=== PATIENT | female | born 1980 | race Caucasian/White ===

== ENCOUNTER → 2018-03-04 | Day surgery (SDC) | payer BC, OTHER ==
[~2018-03-04] MED LIST: Lactated Ringers 1,000 ML IV SCH; Lidocaine 1% 6 ML ONE; Lidocaine 1%/Sod Bicarbonate in NS 8.4% 1 ML Syringe IDERM PRN; Propofol 200 MG/20 ML SDV ONE; Sodium Chloride 0.9% 10 ML Syringe FLUSH PRN; fentaNYL 100 MCG/2 ML SDV ONE
--- NOTE | 2018-03-04 09:46 | PCM.PREANE ---
Preanesthetic Assessment - Anesthesia/Transfusion/Family Hx Anesthesia History: Prior Anesthesia Without Reaction Family History of Anesthesia Reaction: No Transfusion History: No Prior Transfusion(s) Intubation History: Unknown - Review of Systems General: Fatigue, Malaise Pulmonary: No Symptoms (smoker: 0.5 ppd/times 20 years.) Cardiovascular: No Symptoms (History of heart murmur-unable to auscultate at this time.(Patient states doctors do not worry about it.)), Lightheadedness ( with anemia(with postural changes)) Gastrointestinal: Abdominal Pain, Nausea Neurological: No Symptoms, Headache (History of migraines) Other: Reports: None (Iron deficiency), Easy Bruising - Physical Assessment NPO Status Date: 03/03/18 NPO Status Time: 21:30 Pulse: 85 O2 Sat by Pulse Oximetry: 97 Respiratory Rate: 16 Blood Pressure: 101/65 Temperature: 36.8 C Vital Signs: Last Vital Signs Temp 36.8 C 03/04/18 08:50 Pulse 85 03/04/18 08:50 Resp 16 03/04/18 08:50 BP 101/65 03/04/18 08:50 Pulse Ox 97 03/04/18 08:50 Height: 1.55 m Weight: 66.3 kg ASA Class: 2 Mental Status: Alert & Oriented x3 Airway Class: Mallampati = 2 Dentition: Reports: Dentures (upper) Thyro-Mental Finger Breadths: 3 Mouth Opening Finger Breadths: 3 ROM/Head Extension: Full Lungs: Clear to Auscultation, Normal Respiratory Effort Cardiovascular: Regular Rate, Regular Rhythm, No Murmurs - Lab Values: Laboratory Last Values Urine HCG, Qual Negative (NEGATIVE) 03/04/18 08:50 - Allergies Allergies/Adverse Reactions: Allergies Allergy/AdvReac Type Severity Reaction Status Date / Time ibuprofen [From Advil] Allergy Intermediate Edema Verified 03/04/18 09:32 naproxen sodium [From Aleve] Allergy Edema Verified 03/04/18 09:32 tramadol Allergy Stomach Verified 03/04/18 09:32 Ache - Anesthesia Plan Pre-Op Medication Ordered: None - Acknowledgements Anesthesia Type Planned: MAC Pt an Appropriate Candidate for the Planned Anesthesia: Yes Alternatives and Risks of Anesthesia Discussed w Pt/Guardian: Yes Pt/Guardian Understands and Agrees with Anesthesia Plan: Yes PreAnesthesia Questionnaire HEENT History: Reports: Impaired Vision Cardiovascular History: Reports: Heart Murmur Respiratory History: Reports: None Gastrointestinal History: Reports: Other (See Below) Other Gastrointestinal History: abdominal pain Genitourinary History: Reports: None Musculoskeletal History: Reports: Other (See Below) Other Musculoskeletal History: lateral epicondylitis to right elbow, osteochondritis, right knee arthroscopy Neurological History: Reports: Migraines Psychiatric History: Reports: None Endocrine/Metabolic History: Reports: None Hematologic History: Reports: Anemia, Iron Deficiency Immunologic History: Reports: None Oncologic (Cancer) History: Reports: None Dermatologic History: Reports: None - Past Surgical History Head Surgeries/Procedures: Reports: None HEENT Surgical History: Reports: Oral Surgery Cardiovascular Surgical History: Reports: None Respiratory Surgical History: Reports: None GI Surgical History: Reports: None Female Surgical History: Reports: Section Male Surgical History: Reports: None Endocrine Surgical History: Reports: None Neurological Surgical History: Reports: None Musculoskeletal Surgical History: Reports: None Oncologic Surgical History: Reports: None Dermatological Surgical History: Reports: None - SUBSTANCE USE Smoking Status *Q: Current Every Day Smoker Recreational Drug Use History: No - HOME MEDS Home Medications: Home Meds Acetaminophen [Tylenol Extra Strength] 1,000 mg PO Q6H PRN 03/03/18 [History] Ferrous Sulfate [Iron] 325 mg PO BID 03/03/18 [History] Hydrocodone/Acetaminophen [Hydrocodon-Acetaminophen 5-325] 1 tab PO Q6H PRN [History] Ondansetron HCl [Ondansetron] 4 mg PO Q6H PRN 03/03/18 [History] - CURRENT (IN HOUSE) MEDS Current Meds: Current Medications Lactated Ringer's (Ringers, Lactated) 1,000 mls @ 125 mls/hr IV ASDIRECTED TU Stop: 03/04/18 23:00 Lidocaine/Sodium Bicarbonate (Buffered Lidocaine 1% In Ns 8.4%) 0.25 ml IDERM ONETIME PRN PRN Reason: Prior to IV Start Stop: 03/04/18 18:00 Sodium Chloride (Saline Flush) 10 ml FLUSH ASDIRECTED PRN PRN Reason: Keep Vein Open Stop: 03/04/18 18:00 Discontinued Medications Fentanyl (Sublimaze) Confirm Administered Dose 100 mcg .ROUTE .STK-MED ONE Stop: 03/04/18 09:21
--- NOTE | 2018-03-04 10:57 | PCM.OPNOTE ---
- General Post-Op/Procedure Note Date of Surgery/Procedure: 03/04/18 Operative Procedure(s): EGD with biopsy; colonoscopy to cecum with biopsy Findings: sigmoid polyps Pre Op Diagnosis: anemia Post-Op Diagnosis: anemia Anesthesia Technique: MAC Primary Surgeon: Pati Stein Secondary Surgeon: Keith Das Pathology: 1. Gastric antrum mucosa for H. pylori 2. Sigmoid polyps x2 Fluid Replacement, Intraop: 1,000 Output, Urine Amount: 0 EBL in mLs: 0 Drain/Tube Comments:: None Complications: None apparent Condition: Good
--- NOTE | 2018-03-04 11:03 | PCM.PRNOTE ---
- Free Text/Narrative Note: Operative Report Date of Procedure: 03/04/18 Pre Op Diagnosis: Anemia Post-Op Diagnosis: . Same Operative Procedures: 1. EGD with biopsy 2. Colonoscopy to the cecum with biopsy Primary Surgeon: Pati Stein MD Anesthesia Provider: Keith Das CRNA Anesthesia Technique: MAC IV Fluid Replacement, Intraop: 1000 cc crystalloid Output, Urine Amount: 0 cc EBL: 0 cc Findings: . Normal EGD, sigmoid colon polyps Specimens: #1. Gastric antrum mucosa for H. pylori. #2. Sigmoid colon polyps 2 Drain/Tubes: None Indication: The patient is an 37-year-old lady who presented to the clinic with iron deficiency anemia. The patient reported symptoms of fatigue and abdominal pain. She was found to have anemia on her lab work was ordered for her abdominal pain. She denies any hematochezia or melena. The patient was consented for a diagnostic EGD and colonoscopy. Risks of bleeding, and perforation were discussed, and the patient agreed to the risks and wished to proceed. Description of the procedure: The patient was taken back to the endoscopy suite, and placed in the left lateral decubitus position. Local anesthetic to the oropharynx was administered , and a bite block was placed. The patient was sedated with MAC anesthesia. The Olympus video endoscope was inserted into the oropharynx and guided under direct vision into the esophagus, stomach, and duodenum. The gastric antrum was inspected and cold biopsy forceps were used to take tissue samples for H. pylori in the antrum. The duodenal bulb and second portion of the duodenum were unremarkable. The scope was withdrawn to the stomach and retroflexed. There was no increased fluid, food or secretions in the upper gastrointestinal tract. No erosions or ulcers were noted. The scope was withdrawn to the esophagus. A this point we did not identify any hiatal hernia. The Z-line and gastroesophageal junction were located at about 33 cm. No Barretts esophagus changes were noted. The endoscope was then withdrawn Next, anorectal examination was performed. No lesions, masses or hemorrhoids were noted externally or on palpation. There was mild irritation of the anoderm on the posterior midline, but no josh bleeding. The scope was placed into the rectum and advanced to cecum. There was mild tortuosity of the colon. The ileocecal valve was well visualized and the appendiceal orifice identified. At this point, the scope was slowly withdrawn, paying attention to the mucosa. The patient had good bowel prep, 85 % of the mucosa was visible. To small, sessile polyps were noted in the sigmoid colon. These were taken with cold biopsy forceps. In the rectum, scope was retroflexed and some hemorrhoidal tissue was noted. The scope was placed back in the lumen and excess air was aspirated. The scope was removed. The patient tolerated the procedure very well. She will return to my office for discussion of pathology. Complications: None apparent Condition: The patient was transported to PACU in stable condition. Pati Stein MD General Surgery
--- NOTE | 2018-03-04 11:12 | PCM48HPAN ---
Post Anesthesia Note - EVALUATION WITHIN 48HRS OF ANESTHETIC Vital Signs in Normal Range: Yes Patient Participated in Evaluation: Yes Respiratory Function Stable: Yes Airway Patent: Yes Cardiovascular Function Stable: Yes Hydration Status Stable: Yes Pain Control Satisfactory: Yes Nausea and Vomiting Control Satisfactory: Yes Pulse Rate: 50 SaO2: 95 Resp Rate: 16 Temperature: 97 F Blood Pressure: 103/51
[2018-03-04 11:58] VITALS: BP 100/58
== END | disposition home or self-care (01) ==
LOC: JD.SDS 08:38
PROVIDERS: ATTEND Surgery
DX: D50.9 Iron deficiency anemia, unspecified (principal); K63.5 Polyp of colon; K64.9 Unspecified hemorrhoids; K56.2 Volvulus; F17.210 Nicotine dependence, cigarettes, uncomplicated; R10.30 Lower abdominal pain, unspecified; Z79.899 Other long term (current) drug therapy; Z88.6 Allergy status to analgesic agent; Z88.5 Allergy status to narcotic agent
CPT/HCPCS: 43239; 45380; 81025; J2704; J3010; J7120; 00813; J2001

== ENCOUNTER 2023-01-14 23:28 | Emergency (ER) | payer BC ==
[2023-01-15 00:54] LABS: APPEARANCE,URINE SLT CLOUDY (Clear); BILIRUBIN,URINE NEGATIVE (Negative); COLOR,URINE DARK YELLOW (Yellow); GLUCOSE,URINE TRACE (Negative); KETONES,URINE NEGATIVE (Negative); LEUKOCYTE ESTERASE,URINE NEGATIVE (Negative); NITRITE,URINE POSITIVE (Negative); OCCULT BLOOD,URINE NEGATIVE (Negative); PH,URINE 8.5 (5.0-8.0); PROTEIN,URINE 1+ (Negative)
[2023-01-15 01:03] LABS: BACTERIA,URINE MODERATE /hpf (FEW); MUCUS,URINE RARE /hpf (FEW); RBC,URINE 0-5 /hpf (0-5); WBC,URINE 0-5 /hpf (0-5)
[2023-01-15] MEDS ORDERED: Cephalexin 500 MG Cap PO ONE (01:07)
[2023-01-15 01:20] VITALS: BP 116/77; PULSE 54
== END 2023-01-15 01:22 | disposition home or self-care (01) ==
LOC: JD.ED 23:28
DX: N39.0 Urinary tract infection, site not specified (principal); F17.210 Nicotine dependence, cigarettes, uncomplicated; Z88.6 Allergy status to analgesic agent; Z88.5 Allergy status to narcotic agent; Z86.16 Personal history of COVID-19
CPT/HCPCS: 81001; 99284; A9270